=== PATIENT | female | born 1955 | race Caucasian/White ===

== ENCOUNTER 2017-05-25 19:44 | Emergency (ER) | payer BC ==
[~2017-05-25 19:44] MED LIST: ACET500C42 PO; ACET500T68 PO; ACY30T TOP; BUPXL150 PO; CALC-520 PO; CALC600T63 PO; CHOL100011 PO; CHOL100052 PO; CLI150 PO; CLIN-75 PO; CLO1 PO; DIPH-466 PO; DIPH-740 PO; DOCU-416 PO; IBUP-1671 PO; KET10 PO; LOR7.5/325 PO; LORA10CA3 PO; MAGN-40 PO; MAGN400T36 PO; MELA3TAB31 PO; OMEG-49 PO; OMEG-95 PO; OMEP-218 PO; OXY10 PO; OXYC-689 PO; OXYC1TAB54 PO; PAR20 PO; PER PO; PSYL0.5240 PO; RIV10 PO; RIVA10TA PO; VALA500T63 PO; VANC1VIA12 IVPB; [UNRECOGNIZED DRUG - CODE] PO
[2017-05-25] MEDS ORDERED: PROG100C PO (19:55)
--- NOTE | 2017-05-25 19:57 | ER Report ---
History and Physical Time Seen By MD: 19:56 Hx. of Stated Complaint: had lidocaine shot at 440 pm, half hour ago vomiting, nausea, dizziness, itchy and trouble forming words, headache and neck stiffness HPI/ROS CHIEF COMPLAINT: Medication reaction HISTORY OF PRESENT ILLNESS: 62-year-old female patient presents to emergency room with complaint of possible medication reaction. Patient states that she was seen by Dr. Seay, orthopedist, and had joint injections. She states that happened about 5:00 this afternoon. She states that she had injections to her right shoulder and both hips. Patient states that all she was there she developed some paresthesias around her mouth, she had her tongue go numb. She states she is having a hard time formulating words. She states that they laid her down, she rested for a little bit and thinks he did improve. States that her speaking came back after a few moments and she felt like she was able to go home. When she went home she was laying down and felt as if she was having some apneic episodes. She states that at that time she became more concerned and came into the emergency room for further evaluation. She states that she did have one episode of vomiting. She states she has not had any chest pain. She states she does have some neck tightness as well as a low-grade headache to the frontal region. Patient has not taken any medication for this. She states she also feels like she has dry mouth. Patient states that she had a similar reaction to antibiotics which have a urinary tract infection years ago. REVIEW OF SYSTEMS: Respiratory: No cough, no dyspnea. Cardiovascular: No chest pain, no palpitations. Gastrointestinal: As noted above Musculoskeletal: As noted above Allergies: Coded Allergies: Penicillins (Verified Allergy, Intermediate, SEIZURE, 11/24/11) tetracycline (Verified Allergy, Intermediate, RASH, 11/24/11) cefuroxime (Verified Allergy, Mild, SHAKES, TACHY, 11/24/11) clarithromycin (Verified Allergy, Mild, SHAKES, TACHY, 11/24/11) doxycycline (Verified Allergy, Mild, VOMITING, 11/24/11) phenazopyridine (Verified Allergy, Mild, SHAKES, TACHYCARDIA, HYPERSENSITIVITY, 11/24/11) Uncoded Allergies: HAYFEVER (Allergy, Intermediate, CONGESTION, 07/09/14) Home Meds Active Scripts Ondansetron (ZOFRAN ODT) 4 Mg Tab.rapdis, 4 MG PO Q6H Y for NAUSEA/VOMITING, # 20 TAB.ISRAEL Prov:ZACARIAS COTTO [facility] 05/25/17 Prednisone (PREDNISONE) 20 Mg Tablet, 20 MG PO BID, #8 TAB Prov:ZACARIAS COTTO [facility] 05/25/17 Famotidine (PEPCID) 20 Mg Tablet, 20 MG PO QDAY, #30 TAB Prov:ZACARIAS COTTO [facility] 05/25/17 Reported Medications Progesterone,Micronized (PROGESTERONE) 100 Mg Capsule, 100 MG PO, CAPSULE 05/25/17 Clindamycin Hcl (CLINDAMYCIN HCL) 150 Mg Capsule, 150 MG PO DIRECTED for dental procedure, #30 CAPSULE TAKE 1 CAPSULE THREE TIMES DAILY 04/14/14 Valacyclovir Hcl (VALACYCLOVIR) 500 Mg Tablet, 500 MG PO DIRECTED Y for COLD SORES 04/14/14 Magnesium Oxide (MAGNESIUM OXIDE) 400 Mg Tablet, 400 MG PO HS 04/14/14 Melatonin (MELATONIN) 3 Mg Tablet, 3 MG PO HS 04/14/14 Ibuprofen (MOTRIN IB) 200 Mg Tablet, 1-2 TAB PO HS 04/14/14 Acetaminophen (TYLENOL EXTRA STRENGTH) 500 Mg Tablet, 500 MG PO HS 04/14/14 Calcium Carbonate (CALCIUM) 600 Mg Tablet, 1200 MG PO HS 04/14/14 Docusate Sodium (COLACE) 100 Mg Capsule, 100 MG PO BID, CAPSULE 04/14/14 Omeprazole Magnesium (Prilosec Otc) 20 Mg Tablet.dr, 20 MG PO QDAY 10/07/11 Loratadine (Claritin) 10 Mg Capsule, 10 MG PO QAM, 0 Refills 10/26/10 Bupropion Hcl (Wellbutrin Xl) 150 Mg Tabcr, 150 MG PO QPM, 0 Refills 10/26/10 Bupropion Hcl (Wellbutrin Xl) 150 Mg Tabcr, 300 MG PO QAM, 0 Refills 10/26/10 Discontinued Reported Medications Bloomery-3 Fatty Acids/Fish Oil (OMEGA-3 1,000 MG SOFTGEL) 1 Each Capsule, 1 EACH PO DAILY, CAPSULE 07/09/14 Diphenhydramine Hcl (BENADRYL) 25 Mg Capsule, 50 MG PO HS, CAPSULE TAKE 1 CAPSULE BY MOUTH EVERY 6 TO 8 HOURS 12/15/14 Cholecalciferol (Vitamin D3) (VITAMIN D) 1,000 Unit Tablet, 1000 UNIT PO 04/14/14 Past Medical/Surgical History Patient has a past medical history of seizures, bronchitis, celiac disease, reflux, staph infections, arthritis, hyperthyroidism, psoriatic plaques, keratosis conjunctiva, depression. Patient has a surgical history of hysterectomy, wrist surgery, knee surgery, thumb surgery, index finger surgery, sinus surgery, tonsillectomy, Lasix surgery. Patient has a family medical history of cancer, CAD, stroke. Reviewed Nurses Notes: Yes Smoking Status: Never Smoker Constitutional Vital Sign - Last 24 Hours 05/25/17 05/25/17 05/25/17 05/25/17 19:48 19:49 19:59 20:00 Temp 97.7 Pulse 105 101 Resp 20 B/P (MAP) 151/93 (112) 151/93 146/95 (112) Pulse Ox 96 96 O2 Delivery Room Air 05/25/17 05/25/17 05/25/17 05/25/17 20:14 20:29 20:30 20:44 Pulse 98 99 100 Resp 33 16 14 B/P (MAP) ???/??? (1665) Pulse Ox 97 92 91 05/25/17 05/25/17 05/25/17 20:59 21:00 21:14 Pulse ? B/P (MAP) 135/98 (110) Physical Exam General Appearance: The patient is alert, has no immediate need for airway protection and no current signs of toxicity. ENT: Tympanic membranes are pearly-vincent, auditory canals are patent, mixed mucous membranes are moist. Respiratory: Chest is non tender, lungs are clear to auscultation. Cardiac: regular rate and rhythm Gastrointestinal: Abdomen is soft and non tender, no masses, bowel sounds normal. Musculoskeletal: Neck: Neck is supple and non tender. Extremities have full range of motion and are non tender. Skin: No rashes or lesions. DIFFERENTIAL DIAGNOSIS: After history and physical exam differential diagnosis was considered for allergic reaction, lidocaine toxicity, [place]. Medical Decision Making Data Points Result Diagram: 05/25/17202905/25/172029 Laboratory Hematology Test 05/25/17 20:30 Red Blood Count 4.38 M/uL (4.17-5.56) Mean Corpuscular Volume 96.7 fL (80.0-96.0) Mean Corpuscular Hemoglobin 33.8 pg (26.0-33.0) Mean Corpuscular Hemoglobin Concent 35.0 g/dL (32.0-36.0) Red Cell Distribution Width 13.0 % (11.5-14.5) Mean Platelet Volume 6.1 fL (7.2-11.1) Neutrophils (%) (Auto) 86.3 % (39.4-72.5) Lymphocytes (%) (Auto) 10.2 % (17.6-49.6) Monocytes (%) (Auto) 2.6 % (4.1-12.4) Eosinophils (%) (Auto) 0.6 % (0.4-6.7) Basophils (%) (Auto) 0.3 % (0.3-1.4) Nucleated RBC Relative Count (auto) 0.1 /100WBC Neutrophils # (Auto) 6.7 K/uL (2.0-7.4) Lymphocytes # (Auto) 0.8 K/uL (1.3-3.6) Monocytes # (Auto) 0.2 K/uL (0.3-1.0) Eosinophils # (Auto) 0.0 K/uL (0.0-0.5) Basophils # (Auto) 0.0 K/uL (0.0-0.1) Nucleated RBC Absolute Count (auto) 0.00 K/uL Sodium Level 135 mmol/L (137-145) Potassium Level 3.9 mmol/L (3.5-5.0) Chloride Level 101 mmol/L (98-107) Carbon Dioxide Level 22 mmol/L (22-31) Blood Urea Nitrogen 16 mg/dl (7-18) Creatinine 0.90 mg/dl (0.52-1.04) Glomerular Filtration Rate Calc > 60.0 Random Glucose 114 mg/dl (75-110) Calcium Level 9.0 mg/dl (8.4-10.2) Total Bilirubin 0.5 mg/dl (0.2-1.3) Aspartate Amino Transf (AST/SGOT) 30 U/L (0-35) Alanine Aminotransferase (ALT/SGPT) 39 U/L (0-56) Alkaline Phosphatase 74 U/L (0-126) Troponin I < 0.012 ng/ml Total Protein 7.2 gm/dl (6.3-8.2) Albumin 4.2 g/dl (3.5-5.0) Chemistry Test 05/25/17 20:30 White Blood Count 7.8 k/uL (4.5-11.0) Red Blood Count 4.38 M/uL (4.17-5.56) Hemoglobin 14.8 g/dL (12.0-16.0) Hematocrit 42.3 % (34.0-47.0) Mean Corpuscular Volume 96.7 fL (80.0-96.0) Mean Corpuscular Hemoglobin 33.8 pg (26.0-33.0) Mean Corpuscular Hemoglobin Concent 35.0 g/dL (32.0-36.0) Red Cell Distribution Width 13.0 % (11.5-14.5) Platelet Count 181 K/uL (150-450) Mean Platelet Volume 6.1 fL (7.2-11.1) Neutrophils (%) (Auto) 86.3 % (39.4-72.5) Lymphocytes (%) (Auto) 10.2 % (17.6-49.6) Monocytes (%) (Auto) 2.6 % (4.1-12.4) Eosinophils (%) (Auto) 0.6 % (0.4-6.7) Basophils (%) (Auto) 0.3 % (0.3-1.4) Nucleated RBC Relative Count (auto) 0.1 /100WBC Neutrophils # (Auto) 6.7 K/uL (2.0-7.4) Lymphocytes # (Auto) 0.8 K/uL (1.3-3.6) Monocytes # (Auto) 0.2 K/uL (0.3-1.0) Eosinophils # (Auto) 0.0 K/uL (0.0-0.5) Basophils # (Auto) 0.0 K/uL (0.0-0.1) Nucleated RBC Absolute Count (auto) 0.00 K/uL Glomerular Filtration Rate Calc > 60.0 Calcium Level 9.0 mg/dl (8.4-10.2) Total Bilirubin 0.5 mg/dl (0.2-1.3) Aspartate Amino Transf (AST/SGOT) 30 U/L (0-35) Alanine Aminotransferase (ALT/SGPT) 39 U/L (0-56) Alkaline Phosphatase 74 U/L (0-126) Troponin I < 0.012 ng/ml Total Protein 7.2 gm/dl (6.3-8.2) Albumin 4.2 g/dl (3.5-5.0) EKG/Imaging EKG Interpretation 12 lead EKG: Rhythm: normal sinus rhythm with a ventricular rate of 99 bpm Dickinson: normal QRS: normal ST segments: normal Imaging CHEST PA AND LATERAL 05/25/2017 8:57 PM. INDICATION: Chest pain. COMPARISON: None available at the time of dictation. FINDINGS: Lungs are well-expanded. The lungs are clear. No pneumothorax or pleural effusion. Pulmonary vasculature is unremarkable. Heart size is normal. IMPRESSION: No acute cardiopulmonary abnormality. Report Dictated By: Hai Cooper MD at 05/25/2017 9:12 PM Report E-Signed By: Hai Cooper MD at 05/25/2017 9:13 PM ED Course/Re-evaluation ED Course Patient was admitted exam room, history and physical were obtained. Differential diagnoses were considered. On examination patient is resting comfortably, she has no abdominal pain nor chest pain. A CBC, CMP, troponin, EKG , chest x-ray were done. An IV was started, patient received 1 L of normal saline. We also treated her with a dose of Solu-Medrol, 125 mg, Pepcid, 20 mg, Benadryl 25 mg. On reevaluation patient is a she's feeling significantly improved. Labs look fairly unremarkable, MCV was slightly elevated 97. Intact with patient with those likely secondary to her fibrotic illness. I discussed lab findings and the x-ray results with the patient. I also discussed the findings with Dr. Seay. I believe that with her feeling better that we are likely looking at a and allergic reaction. We will go ahead and discharge patient home. She is going to be on a steroid burst for the next 5 days. We will also have her on Pepcid for the next month, due to the dye being injected into the joint and likely slowly being absorbed from there. I discussed this with the patient who verbalized understanding and agreement with plan. Decision to Disposition Date: May 25, 2017 Decision to Disposition Time: 21:41 Depart Departure Latest Vital Signs Vital Signs Date Time Temp Pulse Resp B/P (MAP) Pulse Ox O2 Delivery O2 Flow Rate FiO2 1/25/18 21:14 ??? 05/25/17 21:00 135/98 (110) 05/25/17 20:44 14 91 05/25/17 19:49 97.7 Room Air Impression: Primary Impression: Allergic reaction caused by a drug Condition: Improved Disposition: HOME OR SELF-CARE Referrals: AFRICA INIGUEZ (PCP) New Scripts Ondansetron (ZOFRAN ODT) 4 Mg Tab.rapdis 4 MG PO Q6H Y for NAUSEA/VOMITING, #20 TAB.ISRAEL Prov: ZACARIAS COTTO 05/25/17 Prednisone (PREDNISONE) 20 Mg Tablet 20 MG PO BID, #8 TAB Prov: ZACARIAS COTTO 05/25/17 Famotidine (PEPCID) 20 Mg Tablet 20 MG PO QDAY, #30 TAB Prov: ZACARIAS COTTO 05/25/17 Patient Instructions: General Allergic Reaction (ED) Additional Instructions: Increase fluid intake. Get plenty of rest. Limit activity by pain. You may get up and exercise like normal. Follow up with your primary care provider in the next week. Return to the ER if condition worsens. I believe that this was likely caused by the dye that was used. Problem Qualifiers Primary Impression: Allergic reaction caused by a drug Encounter type: initial encounter Qualified Codes: T78.40XA - Allergy, unspecified, initial encounter ZACARIAS COTTO May 25, 2017 19:57
[2017-05-25] MEDS ORDERED: FAMOTIDINE(*) 20MG/50ML PREMIX 50 ML IVPB ONE (20:10)
[2017-05-25] MEDS ORDERED: diphenhydrAMINE 50 MG/ML VIAL IVP ONE (20:10)
[2017-05-25] MEDS ORDERED: methylPREDNIS SUCC 125 MG/2ML IVP ONE (20:10)
[2017-05-25] MEDS ORDERED: NS(*) 0.9% 1000 ML BAG 1,000 ML IV ONE (20:10)
[2017-05-25] MEDS ORDERED: ONDANSETRON 4 MG/2 ML VIAL IVP ONE (20:15)
--- NOTE | 2017-05-25 20:26 | EKG ---
FACILITY: [facility] PATIENT NAME: PIYUSH DOWNEY : [id number] MR: [id number] V: [id number] EXAM DATE: ORDERING PHYSICIAN: ZACARIAS COTTO TECHNOLOGIST: Adaam Kay Reason : Blood Pressure : / mmHG Vent. Rate : 099 BPM Atrial Rate : 099 BPM P-R Int : 156 ms QRS Dur : 078 ms QT Int : 372 ms P-R-T Axes : 044 002 041 degrees QTc Int : 477 ms Normal sinus rhythm No ST-T abnormalities No previous ECGs available Confirmed by BARB GREWAL ([id number]) on 05/26/2017 4:53:04 AM Referred By: Confirmed By:BARB GREWAL
[2017-05-25 20:46] LABS: PLATELET COUNT, AUTOMATED 181 K/uL (150-450)
--- NOTE | 2017-05-25 21:18 | RADIOLOGY IMAGING REPORT ---
[place] [facility] [place]IENT NAME: Ifrah Duenas : 1955 MR: [id number] V: [id number] EXAM DATE: ORDERING PHYSICIAN: ZACARIAS COTTO TECHNOLOGIST: Location: [facility] - [place] Patient: Ifrah Duenas : 1955 Visit/Account:[id number] Date of Sevice: 05/25/2017 CHEST PA AND LATERAL 05/25/2017 8:57 PM. INDICATION: Chest pain. COMPARISON: None available at the time of dictation. FINDINGS: Lungs are well-expanded. The lungs are clear. No pneumothorax or pleural effusion. Pulmo nary vasculature is unremarkable. Heart size is normal. IMPRESSION: No acute cardiopulmonary abnormality. Report Dictated By: Hai Cooper MD at 05/25/2017 9:12 PM Report E-Signed By: Hai Cooper MD at 05/25/2017 9:13 PM WSN:[id number]
[2017-05-25] MEDS ORDERED: ONDANSETRON 4 MG ODT TH SL ONE (21:45)
[2017-05-25] MEDS ORDERED: predniSONE 20 MG TAB PO ONE (21:45)
[2017-05-25] MEDS ORDERED: ONDA4TAB PO (21:52)
[2017-05-25] MEDS ORDERED: FAMO20TA28 PO (21:52)
[2017-05-25] MEDS ORDERED: PRED20TA6 PO (21:52)
== END 2017-05-25 22:14 | disposition home or self-care (01) ==
LOC: ER 20:00
DX: T78.40XA Allergy, unspecified, initial encounter (principal)
CPT/HCPCS: 71046; 84484; 85025; 93005; 96361; 96365; 96375; 99284; J1200; J2405; J2930; J3490; J7030; J7512; S0119; 82040; 82247; 82310; 82374; 82435; 82565; 82947; 84075; 84132; 84155; 84295; 84450; 84460; 84520

== ENCOUNTER → 2017-12-18 | Outpatient (CLI) | payer BC ==
[~2017-12-18] MED LIST changes: +FAMO20TA28 PO; +ONDA4TAB PO; +PRED20TA6 PO; +PROG100C PO
--- NOTE | 2017-12-19 09:11 | RADIOLOGY IMAGING REPORT ---
FACILITY: [facility] - [place] PATIENT NAME: PIYUSH DOWNEY : [id number] MR: [id number] V: [id number] EXAM DATE: [id number] ORDERING PHYSICIAN: AFRICA INIGUEZ TECHNOLOGIST: Manuela Lombardi PROCEDURE:BILATERAL DIGITAL SCREENING MAMMOGRAM WITH CAD ASSISTED INTERPRETATION & 3D TOMOSYNTHESIS COMPARISON:Prior mammograms 12/15/16, 12/15/15, 12/11/14, 11/05/12, 08/30/11. INDICATIONS:SCREENING FINDINGS: Mildly heterogeneous fibroglandular tissue is seen throughout the breasts. The parenchymal pattern has remained stable allowing for difference in mammographic technique & patient positioning. There is no evidence of malignant appearing mass, malignant appearing calcifications or other secondary sign of malignancy in either breast. DIAGNOSTIC CATEGORY 1--NEGATIVE. RECOMMENDATIONS: ROUTINE MAMMOGRAM AND CLINICAL EVALUATION. IMPRESSION: BIRADS 1: Negative. No significant abnormality is seen. Dictated by: Savanna Duffy M.D. on 12/18/2017 at 16:09 Transcribed by: RAFAELA on 12/18/2017 at 16:13 Approved by: Savanna Duffy M.D. on 12/19/2017 at 9:06 [facility]
== END ==
LOC: MAMO 01:20
PROVIDERS: ATTEND Nurse Practitioner Family
DX: Z12.31 Encounter for screening mammogram for malignant neoplasm of breast (principal); Z80.3 Family history of malignant neoplasm of breast
CPT/HCPCS: 77063; 77067

== ENCOUNTER 2018-07-17 14:00 | Outpatient (RCR) | payer BC ==
[2018-07-18] MEDS ORDERED: IOPAMIDOL 76% 150 ML INFUS BTL 150 ML ONE (13:32)
--- NOTE | 2018-07-18 14:24 | RADIOLOGY IMAGING REPORT ---
FACILITY: [facility] - [place] PATIENT NAME: Ifrah Duenas : 1955 MR: [id number] V: [id number] EXAM DATE: ORDERING PHYSICIAN: AFRICA INIGUEZ TECHNOLOGIST: Location: [facility] - [place] Patient: Ifrah Duenas : 1955 Visit/Account:[id number] Date of Sevice: 07/18/2018 CT ABDOMEN PELVIS W/ CON HISTORY: Right groin pain, lymphadenopathy, TECHNIQUE: Following administration of IV contrast contiguous axial images acquired through the abdom en/pelvis. Coronal and sagittal reformatting also performed.Dose Lowering Technique One of the following dose optimization techniques was utilized in the performance of this exam: Autom ated exposure control; adjustment of the mA and/or kV according to the patient's size; or use of an i terative reconstruction technique. Specific details can be referenced in the facility's radiology C T exam operational policy. CONTRAST: 75 mL Isovue-370 COMPARISON: None. FINDINGS: Visualized lung bases: Negative. Hepatobiliary: Common bile duct is dilated up to 1 cm. The intrahepatic biliary tree does not appea r dilated nor does the gallbladder. An obstructing calculus is not seen. Spleen: Negative. Adrenals: Negative. Pancreas: There is no demonstration of a pancreatic mass or pancreatic duct dilatation Kidneys ureters or bladder: Negative. Genitalia: Hysterectomy GI: The appendix is not visualized. There is a focally dilated loop of small bowel in the right upp er abdomen with a transitional point in the lateral aspect the right midabdomen best seen on axial im age 209 of series 3 and coronal image 37 of series 4 Vessels/spaces/nodes: Negative. Bones/soft tissues: No aggressive appearing bone lesions are seen Additional findings: None pertinent. IMPRESSION: The common bile duct is dilated up to 1 cm although the intrahepatic biliary tree does not appear dil ated nor does the gallbladder. An obstructing calculus is not seen. Depending upon the clinical pre sentation and MRCP may be helpful for further evaluation. The appendix is not visualized. There is a focally dilated loop of small bowel in the right upper ab domen with a transitional point in the lateral aspect the right mid abdomen as described above. The remainder the small bowel does not appear dilated Report Dictated By: Savanna Duffy MD at 07/18/2018 2:04 PM Report E-Signed By: Savanna Duffy MD at 07/18/2018 2:19 PM NERYN:[id number]
== END 2018-07-18 18:00 | disposition home or self-care (01) ==
LOC: CT 14:00
PROVIDERS: ATTEND Nurse Practitioner Family
DX: R59.1 Generalized enlarged lymph nodes (principal); Q82.8 Other specified congenital malformations of skin
CPT/HCPCS: 36415; 74177; 82565; Q9967

== ENCOUNTER → 2018-10-30 | Outpatient (CLI) | payer BC | LOC: RESP 00:15 | PROVIDERS: ATTEND Nurse Practitioner Family | DX: Q82.8 Other specified congenital malformations of skin (principal) | CPT/HCPCS: 94060; 94726; 94729 ==

== ENCOUNTER → 2018-11-14 | Outpatient (CLI) | payer BC ==
--- NOTE | 2018-11-20 10:04 | RADIOLOGY IMAGING REPORT ---
FAC[place]: [facility] [place]IENT NAME: PIYUSH DOWNEY : [id number] MR: [id number] V: [id number] EXAM DATE: [id number] ORDERING PHYSICIAN: AFRICA INIGUEZ TECHNOLOGIST: Anay Nichols RDMS(ABD,OBGYN,BR),RVT PROCEDURE:BILATERAL DIAGNOSTIC DIGITAL MAMMOGRAM WITH CAD ASSISTED INTERPRETATION & 3D TOMOSYNTHESIS REASON FOR STUDY: Right axillary lump FAMILY HISTORY OF BREAST CANCER: BREAST PROCEDURES/TREATMENTS: COMPARISON STUDIES: Compared to priors MAMMOGRAM VIEWS OBTAINED: Bilateral 2D & 3D full field CC & MLO projections BREAST DENSITY: Scattered fibroglandular densities are present in both breasts. MAMMOGRAM FINDINGS: Benign appearing asymmetries are scattered bilaterally, essentially unchanged. ULTRASOUND RIGHT BREAST AREA SCANNED: ULTRASOUND FINDINGS: Several non fat containing lymph nodes measuring up to 2.5cm in diameter are present in the Right axilla. DIAGNOSTIC CATEGORY 4--SUSPICIOUS FOR MALIGNANCY. RECOMMENDATIONS: SURGICAL CONSULTATION. Surgical consultation for evaluation of Right axillary lymph adenopathy. The enlarged lymph nodes would be amenable to Ultrasound guided needle core biopsy, if desired. IMPRESSION: BIRADS 4: Suspicious for malignancy. Suspicious abnormality. Dictated by: Trino Leos M.D. on 11/14/2018 at 13:02 [facility] Approved by: Juanita Hawk M.D. on 11/20/2018 at 10:00
--- NOTE | 2018-11-20 10:04 | RADIOLOGY IMAGING REPORT ---
FACILITY: [facility] - [place] PATIENT NAME: PIYUSH DOWNEY : [id number] MR: [id number] V: [id number] EXAM DATE: [id number] ORDERING PHYSICIAN: AFRICA INIGUEZ TECHNOLOGIST: Jess Tan PROCEDURE:BILATERAL DIAGNOSTIC DIGITAL MAMMOGRAM WITH CAD ASSISTED INTERPRETATION & 3D TOMOSYNTHESIS REASON FOR STUDY: Right axillary lump FAMILY HISTORY OF BREAST CANCER: BREAST PROCEDURES/TREATMENTS: COMPARISON STUDIES: Compared to priors MAMMOGRAM VIEWS OBTAINED: Bilateral 2D & 3D full field CC & MLO projections BREAST DENSITY: Scattered fibroglandular densities are present in both breasts. MAMMOGRAM FINDINGS: Benign appearing asymmetries are scattered bilaterally, essentially unchanged. ULTRASOUND RIGHT BREAST AREA SCANNED: ULTRASOUND FINDINGS: Several non fat containing lymph nodes measuring up to 2.5cm in diameter are present in the Right axilla. DIAGNOSTIC CATEGORY 4--SUSPICIOUS FOR MALIGNANCY. RECOMMENDATIONS: SURGICAL CONSULTATION. Surgical consultation for evaluation of Right axillary lymph adenopathy. The enlarged lymph nodes would be amenable to Ultrasound guided needle core biopsy, if desired. IMPRESSION: BIRADS 4: Suspicious for malignancy. Suspicious abnormality. Dictated by: Trino Leos M.D. on 11/14/2018 at 13:02 Transcribed by: JUDI on 11/15/2018 at 10:47 Approved by: Juanita Hawk M.D. on 11/20/2018 at 10:00 [facility]
== END ==
LOC: MAMO 00:31
PROVIDERS: ATTEND Nurse Practitioner Family
DX: R59.1 Generalized enlarged lymph nodes (principal); N60.12 Diffuse cystic mastopathy of left breast; N60.11 Diffuse cystic mastopathy of right breast
CPT/HCPCS: 77062; 77066

== ENCOUNTER → 2018-11-22 | Outpatient (CLI) | payer BC ==
[2018-11-22 13:47] LABS: INR 0.94
--- NOTE | 2018-11-22 17:50 | RADIOLOGY IMAGING REPORT ---
FACILITY: [facility] - [place] PATIENT NAME: Ifrah Duenas : 1955 MR: [id number] V: [id number] EXAM DATE: ORDERING PHYSICIAN: AFRICA INIGUEZ TECHNOLOGIST: Location: [facility] - [place] Patient: Ifrah Duenas : 1955 Visit/Account:[id number] Date of Sevice: 11/22/2018 LYMPH NODE BIOPSY HISTORY: Right axillary lymphadenopathy. Additional history: During the procedure patient reported that she has had adenopathy elsewhere body which is been stable. COMPARISON: None. Procedure: Following informed consent and timeout the the right axilla was prepped and draped in usua l sterile fashion. Under sonographic guidance approach to the largest pathologic appearing lymph nod e was infiltrated with 1% lidocaine. Thereafter, approximately 8 12-gauge core biopsies were perform ed through the lymph node with half of the samples placed in formalin and half of the samples placed in RPMI.. Needle was removed and compression held. There was intimal bleeding. Patient tolerated t he procedure well. IMPRESSION: Technically successful ultrasound-guided biopsy of a large pathologic right axillary lymph node. Report Dictated By: Hill Urbina MD at 11/22/2018 5:37 PM Report E-Signed By: Hill Urbina MD at 11/22/2018 5:43 PM WSN:[id number]
== END ==
LOC: LAB 13:09
PROVIDERS: ATTEND Nurse Practitioner Family
DX: R59.0 Localized enlarged lymph nodes (principal)
CPT/HCPCS: 36415; 38505; 85049; 85610; 85730; 88305